=== PATIENT | female | born 1985 | race Hispanic/Latino ===

== ENCOUNTER 2019-11-06 22:02 | Emergency (ER) | payer SELFPAY ==
[~2019-11-06] VITALS: Ht 170.2 cm; Wt 61.2 kg
--- NOTE | 2019-11-06 22:02 | NUR ---
{null, INFECTIOUS CONTROL CALLED AT THIS TIME AND SPOKE WITH SADIA AVENDAÑO. WAS TOLD TO DO THE RSP PANEL PCR. }
--- NOTE | 2019-11-06 22:38 | Diagnostic Imaging Report ---
EXAMINATION: CHEST 2 VIEWS INDICATION: Cough, fever, sore throat COMPARISON: None FINDINGS: TUBES and LINES: None. LUNGS: Normal lung volumes. Mild central bronchial wall thickening. No consolidations. PLEURA: No pleural effusion or pneumothorax. HEART AND MEDIASTINUM: The cardiomediastinal silhouette is unremarkable. BONES AND SOFT TISSUES: No acute osseous lesion. Breast implants UPPER ABDOMEN: No free air under the diaphragm. IMPRESSION: Findings of bronchitis. Signed by: Mo Patel DO on 11/06/2019 10:35 PM
[2019-11-06] MEDS ORDERED: ACETAMINOPHEN 325 MG TAB PO ONE (22:45)
[2019-11-06 23:36] LABS: STREPTOCOCCUS GRP A ANTIGEN NEGATIVE (NEGATIVE)
[2019-11-06 23:53] LABS: INFLUENZAE A&B ANTIGEN (RAPID) POSITIVE FLU A (NEGATIVE)
[2019-11-06] MEDS ORDERED: IBUPROFEN 600 MG TAB PO STA (23:59)
== END 2019-11-07 01:40 | disposition home or self-care (01) ==
LOC: ER 22:02
DX: R50.9 Fever, unspecified (principal); R05 Cough; J11.1 Influenza due to unidentified influenza virus with other respiratory manifestations
CPT/HCPCS: 71046; 83518; 87070; 87400; 99284